=== PATIENT | male | born 1965 | race African-American/Black ===

== ENCOUNTER 2022-04-09 11:34 | Emergency (ER) | payer OTHER ==
[~2022-04-09] VITALS: Ht 180.3 cm; Wt 113.6 kg
[~2022-04-09 11:34] MED LIST: ALPR-707 PO; ATEN-72 PO; MULT-660 PO; QUET300T2 PO
[2022-04-09] MEDS ORDERED: FURO20 PO (14:35)
[2022-04-09 14:45] LABS: BASOPHILS % (AUTO) 0.8 % (0.0-2.0); EOSINOPHILS % (AUTO) 4.9 % (1.0-6.0); HEMATOCRIT 37.7 % (41-53); HEMOGLOBIN 12.2 g/dL (13.5-17.5); LYMPHOCYTES # (AUTO) 2.1 K/uL (1.0-4.8); LYMPHOCYTES % (AUTO) 31.6 % (22.0-44.0); MEAN CORPUSCULAR HEMOGLOBIN 30.5 pg (26.0-34.0); MEAN CORPUSCULAR HGB CONC 32.3 G/dL (31.0-37.0); MEAN CORPUSCULAR VOLUME 94 fL (80-100); MONOCYTES # (AUTO) 0.6 K/uL (0.1-1.0); MONOCYTES % (AUTO) 8.8 % (2.0-9.0); NEUTROPHILS # (AUTO) 3.6 K/uL (1.8-7.7); NEUTROPHILS % (AUTO) 53.9 % (40.0-70.0); PLATELET COUNT (AUTO) 232 K/uL (150-450)
[2022-04-09 14:55] LABS: ANION GAP 7 mmol/L (8-16); CALCIUM, TOTAL 8.4 mg/dL (8.8-10.5); CARBON DIOXIDE 28 mmol/L (22-29); CHLORIDE 107 mmol/L (98-107); GLUCOSE,RANDOM 89 mg/dL (70-110); POTASSIUM 3.6 mmol/L (3.5-5.1); SODIUM SERUM 142 mmol/L (136-145); UREA NITROGEN, BLOOD 16 mg/dL (7-18)
[2022-04-09 14:57] LABS: GLOMERULAR FILTR. RATE CALC > 60 mL/min (>60)
[2022-04-09 15:01] LABS: ALANINE AMINOTRANSFERASE 48 U/L (12-78); ALBUMIN 2.8 g/dL (3.4-5.0); ALKALINE PHOSPHATASE 99 U/L (46-116); ASPARTATE AMINOTRANSFERASE 37 U/L (15-37); BILIRUBIN,TOTAL 0.7 mg/dL (0.1-1.0); TOTAL PROTEIN, SERUM 6.9 g/dL (6.4-8.2)
[2022-04-09 15:21] LABS: B-TYPE NATRIURETIC PEPTIDE 873 pg/mL (0-100)
[2022-04-09] MEDS ORDERED: POTASSIUM CHLORIDE 20 MEQ ER TABLET PO ONE (15:30)
[2022-04-09] MEDS ORDERED: FUROSEMIDE 20 MG TABLET PO ONE (15:30)
[2022-04-09 16:02] VITALS: BP 130/80
== END 2022-04-09 16:03 | disposition home or self-care (01) ==
LOC: EMS 11:34
DX: R60.0 Localized edema (principal); I50.9 Heart failure, unspecified; J45.909 Unspecified asthma, uncomplicated; F17.210 Nicotine dependence, cigarettes, uncomplicated; Z86.59 Personal history of other mental and behavioral disorders
CPT/HCPCS: 71045; 80053; 83880; 85025; 93005; 99285; 36415-L1; 36415-TC

== ENCOUNTER 2022-04-11 03:45 | Emergency (ER) | payer OTHER ==
[~2022-04-11] VITALS: Ht 180.3 cm; Wt 86.4 kg
[~2022-04-11 03:45] MED LIST changes: +FURO20 PO
[2022-04-11 03:48] VITALS: BP 142/97
== END 2022-04-11 04:23 | disposition home or self-care (01) ==
LOC: EMS 03:48
DX: F31.9 Bipolar disorder, unspecified (principal); F19.10 Other psychoactive substance abuse, uncomplicated; J45.909 Unspecified asthma, uncomplicated; F17.210 Nicotine dependence, cigarettes, uncomplicated; Z79.899 Other long term (current) drug therapy
CPT/HCPCS: 99281; Z7502

== ENCOUNTER 2022-04-17 21:30 | Emergency (ER) | payer OTHER ==
[~2022-04-17] VITALS: Ht 185.4 cm; Wt 79.5 kg
[2022-04-17 23:37] VITALS: BP 152/72
== END 2022-04-18 00:45 | disposition left against medical advice (07) ==
LOC: EMS 21:33
DX: Z53.21 Procedure and treatment not carried out due to patient leaving prior to being seen by health care provider (principal)

== ENCOUNTER 2022-04-18 06:51 | Emergency (ER) | payer OTHER ==
[~2022-04-18] VITALS: Ht 180.3 cm; Wt 86.4 kg
[2022-04-18 06:55] VITALS: BP 168/104
== END 2022-04-18 10:32 | disposition home or self-care (01) ==
LOC: EMS 06:53
DX: F20.0 Paranoid schizophrenia (principal); J45.909 Unspecified asthma, uncomplicated; F17.210 Nicotine dependence, cigarettes, uncomplicated; Z76.5 Malingerer [conscious simulation]; Z59.00 Homelessness unspecified; Z86.59 Personal history of other mental and behavioral disorders
CPT/HCPCS: 99281; Z7502